=== PATIENT | female | born 1985 | race Caucasian/White ===

== ENCOUNTER 2017-07-03 17:25 | Emergency (ER) | payer MEDICAID ==
[~2017-07-03] VITALS: Wt 55.0 kg
[~2017-07-03 17:25] MED LIST: FER325 PO; PRENAT PO
[2017-07-03] MEDS ORDERED: SOD CHLORIDE 0.9% 500 ML IV STA (22:30)
[2017-07-03 23:18] LABS: BASOPHILS % 0.4 % (0.0-2.0); EOSINOPHILS # 0.1 10^3/ul (0.0-0.5); EOSINOPHILS % 1.5 % (0.0-7.0); HEMATOCRIT 32.2 % (37.0-47.0); HEMOGLOBIN 10.7 g/dl (12.0-16.0); LYMPHOCYTES # 1.9 10^3/ul (0.8-2.9); LYMPHOCYTES % 26.2 % (15.0-51.0); MEAN CORPUSCULAR HEMOGLOBIN 29.3 pg (29.0-33.0); MEAN CORPUSCULAR HGB CONC 33.2 g/dl (32.0-37.0); MEAN CORPUSCULAR VOLUME 88.2 fl (82.0-101.0); MEAN PLATELET VOLUME 10.5 fl (7.4-10.4); MONOCYTE # 0.7 10^3/ul (0.3-0.9); MONOCYTES % 9.2 % (0.0-11.0); NEUTROPHIL # 4.5 10^3/ul (1.6-7.5); NEUTROPHILS % 62.4 % (39.0-77.0); PLATELET COUNT 229 10^3/UL (140-415); RED BLOOD COUNT 3.65 10^6/ul (4.20-5.40); RED CELL DISTRIBUTION WIDTH 13.8 % (11.5-14.5); WHITE BLOOD COUNT 7.2 10^3/ul (4.8-10.8)
[2017-07-03 23:26] LABS: ADD UMIC YES; UR ASCORBIC ACID 40 mg/dL (NEGATIVE); UR BILIRUBIN (Dip) NEGATIVE (NEGATIVE); UR BLOOD (Dip) NEGATIVE (NEGATIVE); UR CLARITY CLOUDY (CLEAR); UR COLOR YELLOW (YELLOW); UR GLUCOSE (Dip) NEGATIVE (NEGATIVE); UR KETONES (Dip) NEGATIVE (NEGATIVE); UR LEUKOCYTE ESTERASE (Dip) 3+ Leu/ul (NEGATIVE); UR MUCUS MODERATE /HPF (NONE SEEN); UR NITRITE (Dip) NEGATIVE (NEGATIVE); UR RBC 12 /HPF (0-5); UR SPECIFIC GRAVITY (Dip) 1.021 (1.003-1.030); UR SQUAMOUS EPITHELIAL CELL MODERATE /HPF (FEW); UR TOTAL PROTEIN (Dip) NEGATIVE (NEGATIVE); UR UROBILINOGEN (Dip) 1+ mg/dL (NEGATIVE)
[2017-07-03 23:49] LABS: ANION GAP 10 (8-16); BLOOD UREA NITROGEN 3 mg/dl (7-20); CALCIUM 9.4 mg/dl (8.4-10.2); CARBON DIOXIDE 26 mmol/L (21-31); CHLORIDE 106 mmol/L (97-110); CREATININE 0.45 mg/dl (0.44-1.00); GLUCOSE 90 mg/dl (70-220); POTASSIUM 3.8 mmol/L (3.5-5.1); SODIUM 138 mmol/L (135-144)
[2017-07-04] LABS: TROPONIN-I < 0.012 ng/ml (0.00-0.12)
--- NOTE | 2017-07-04 00:25 | RADRPT ---
PROCEDURE: Chest. CLINICAL INDICATION: Syncope. TECHNIQUE: 2 frontal views of the chest were obtained. COMPARISON: None. FINDINGS: The cardiac silhouette is within normal limits. The aortic arch is unremarkable. There is no focal consolidation, vascular congestion or pleural effusion. There is no pneumothorax. IMPRESSION: No evidence for active cardiopulmonary disease. .Jacinto Prater MD, MD Date Time Electronically viewed and signed by .Jacinto Prater MD, MD on 07/04/2017 00:25 .T/
--- NOTE | 2017-07-04 00:53 | RADRPT ---
PROCEDURE: US OB. CLINICAL INDICATION: Vaginal bleeding. TECHNIQUE: Multiple sonographic images of the pelvis were obtained. Transabdominal imaging only w as performed. The images were reviewed on a PACS workstation. COMPARISON: None. FINDINGS: Single live intrauterine is identified. Cardiac activity is present with 141 beats per mi nute. There is a vertex presentation. Measurements: BPD = 22 weeks 4 days. HC = 21 weeks 4 days. AC = 23 weeks 1 day. FL = 23 weeks 3 days. Estimated gestational age of approximately 22 weeks 5 days. The estimated date of delivery is 11/02/2015. The EFW = 557 g which is at the 81st percentile.. The placenta is posterior. . There is a grossly normal amount of amniotic fluid with an MVP = 6.6 cm.. IMPRESSION: Single live intrauterine gestation of approximately 22 weeks 5 days. RPTAT: [facility] .Nikhil Guzman MD, Date Time Electronically viewed and signed by .Nikhil Guzman MD, MD on 07/04/2017 00:53 .K/
--- NOTE | 2017-07-04 01:29 | ERD ---
ER Documentation Chief Complaint Date/Time DATE: 07/04/17 TIME: 01:27 Chief Complaint NEAR-SYNCOPE, PT 18 WKS PG, NO TAMAYO, NO DIZZINESS HPI 32-year-old female comes in today after having a near syncopal episode. Patient said she felt dizzy and felt like she was going to pass out. She said she is 18 weeks . No headache no dizziness. No nausea no vomiting no chills. No other current complaints. No focal neurologic complaints. Patient says she feels fine now. Denies any vaginal bleeding. Denies any visual acuity changes. Symptoms have since resolved. ROS All systems reviewed and are negative except as per history of present illness. Medications Home Meds Reported Medications Ferrous Sulfate* (Ferrous Sulfate*) 325 Mg Tabec, 325 MG PO DAILY, TAB 04/03/14 Multivit/Min/Fol Ac/Iron/Pren* ( S*) 1 Tab Tab, 1 TAB PO DAILY, TAB 04/03/14 Allergies Allergies: Coded Allergies: No Known Allergies (Unverified Allergy, Unknown, 04/03/14) PMhx/Soc Medical and Surgical Hx: pt denies Medical Hx, pt denies Surgical Hx Hx Alcohol Use: No Hx Substance Use: No Hx Tobacco Use: No Smoking Status: Never smoker Physical Exam Vitals Vital Signs Date Time Temp Pulse Resp B/P Pulse Ox O2 Delivery O2 Flow Rate FiO2 07/03/17 17:29 99.2 87 18 128/68 98 Physical Exam Const: [] Head: Atraumatic Eyes: Normal Conjunctiva ENT: Normal External Ears, Nose and Mouth. Neck: Full range of motion..~ No meningismus. Resp: Clear to auscultation bilaterally Cardio: Regular rate and rhythm, no murmurs Abd: Soft, non tender, non distended. Normal bowel sounds Skin: No petechiae or rashes Back: No midline or flank tenderness Ext: No cyanosis, or edema Neur: Awake and alert Psych: Normal Mood and Affect Result Diagram: 07/03/176 07/03/172305 Results 24 hrs Laboratory Tests Test 07/03/17 22:34 07/03/17 23:06 Urine Color YELLOW Urine Clarity CLOUDY Urine pH 6.0 Urine Specific [place] 1.021 Urine Ketones NEGATIVEmg/dL Urine Nitrite NEGATIVEmg/dL Urine Bilirubin NEGATIVEmg/dL Urine Urobilinogen 1+mg/dL Urine Leukocyte Esterase 3+Sabine/ul Urine Microscopic RBC 12/HPF Urine Microscopic WBC 40/HPF Urine Squamous Epithelial Cells MODERATE/HPF Urine Calcium Oxalate Crystals FEW/HPF Urine Mucus MODERATE/HPF Urine Hemoglobin NEGATIVEmg/dL Urine Glucose NEGATIVEmg/dL Urine Total Protein NEGATIVEmg/dl White Blood Count 7.210^3/ul Red Blood Count 3.6510^6/ul Hemoglobin 10.7g/dl Hematocrit 32.2% Mean Corpuscular Volume 88.2fl Mean Corpuscular Hemoglobin 29.3pg Mean Corpuscular Hemoglobin Concent 33.2g/dl Red Cell Distribution Width 13.8% Platelet Count 55802^3/UL Mean Platelet Volume 10.5fl Neutrophils % 62.4% Lymphocytes % 26.2% Monocytes % 9.2% Eosinophils % 1.5% Basophils % 0.4% Nucleated Red Blood Cells % 0.0/100WBC Neutrophils # 4.510^3/ul Lymphocytes # 1.910^3/ul Monocytes # 0.710^3/ul Eosinophils # 0.110^3/ul Basophils # 0.010^3/ul Nucleated Red Blood Cells # 0.010^3/ul Sodium Level 138mmol/L Potassium Level 3.8mmol/L Chloride Level 106mmol/L Carbon Dioxide Level 26mmol/L Anion Gap 10 Blood Urea Nitrogen 3mg/dl Creatinine 0.45mg/dl Glucose Level 90mg/dl Calcium Level 9.4mg/dl Troponin I < 0.012ng/ml Beta HCG, Quantitative 32352.0mIU/ml Current Medications Medications (Trade) Dose Ordered Sig/Bill Route PRN Reason Start Time Stop Time Status Last Admin Dose Admin Sodium Chloride (NS) 500 ml @ 500 mls/hr Q1H STAT IV 07/03/17 22:30 07/03/17 23:29 DC 07/03/17 22:30 Procedures/MDM EKG: Rate/Rhythm: [Normal Sinus Rhythm] QRS, ST, T-waves: [No changes consistent w/ acute ischemia] Impression: [No evidence of ischemia or arrhythmia] Ultrasound shows a 21 week . Medical decision-makin-year-old f female with a near syncopal episode.. Evidence of UTI on urinalysis. Clinically stable. Patient will be discharged home. Patient discharged on antibiotics Departure Diagnosis: Primary Impression: Near syncope Additional Impression: UTI (urinary tract infection) Urinary tract infection type: acute cystitis Hematuria presence: without hematuria Qualified Code: N30.00 - Acute cystitis without hematuria Condition: Stable ROSETTE TROY Jul 04, 2017 01:29
[2017-07-04] MEDS ORDERED: CEPH-443 PO (01:30)
[2017-07-04 01:50] VITALS: BP 130/81; PULSE 83; RESP 18; TEMP 99.2
== END 2017-07-04 01:53 | disposition home or self-care (01) ==
LOC: E/R 17:25
DX: O99.89 Other specified diseases and conditions complicating pregnancy, childbirth and the puerperium (principal); R55 Syncope and collapse; O23.12 Infections of bladder in pregnancy, second trimester; R10.2 Pelvic and perineal pain; Z3A.22 22 weeks gestation of pregnancy
CPT/HCPCS: 71010; 76805; 80048; 81001; 84484; 84702; 85025; 93005; J7040; 36415

== ENCOUNTER 2017-10-29 06:52 | Inpatient (IN) | END 2017-10-31 18:00 | disposition home or self-care (01) | DRG 775 ==